=== PATIENT | female | born 1970 | race Caucasian/White ===

== ENCOUNTER → 2016-09-11 | Day surgery (SDC) | payer OTHER ==
[~2016-09-11] VITALS: Ht 149.9 cm; Wt 43.1 kg
[~2016-09-11] MED LIST: AZITHROMYCIN250 M1 PO; CLOPIDOGREL75 M2 PO; COMBIVENT INH14.7 GM IN; FENOFIBRATE MI134 MG PO; FIORINAL #3 CA1 EACH PO; GABAPENTIN100 M1 PO; HYDROCODON-ACETAMINO PO; KEFLEX 500MG.500 MG PO; MECLIZINE12.5 MG PO; METFORMIN1000 MG PO; MORPHINE SULFAT30 M3 PO; NORCO 325 MG-101 TAB PO; NORCO 325 MG-51 TAB PO; OMNICEF 300 MG300 MG PO; PRAVACHOL 20MG.20 MG PO; SIMVASTATIN40 MG PO; TIZANIDINE HCL4 MG PO; XANAX 1MG TABLET1 MG PO; ZANTAC150 MG PO
[2016-09-11 10:38] VITALS: BP 130/79
[2016-09-11 10:59] VITALS: BP 130/79
[2016-09-11 11:02] VITALS: BP 129/88
--- NOTE | 2016-09-11 11:15 | Procedure Note ---
Procedure detail Date of procedure: 09/11/16 Anesthesiologist: Sam momin CRNA Complications: None Pre-procedure diagnosis: Degenerative disc disease cervical spine. Cervical radiculopathy symptoms. Post-procedure diagnosis: Same. Indications for procedure: This patient's a pleasant 45-year-old white female that has recently been in our pain clinic for cervical neck pain that she describes as constant, dull, aching. Patient also complains of bilateral arm radiculopathy symptoms in the form of tingling in the hands. She rates her pain 7/10. Patient is status post 1 cervical epidural steroid injection which she reports today complete relief lasting 1-2 days. After which time her pain returned to baseline. Patient is status post anterior cervical discectomy and fusion. Patient would like to begin physical therapy again but is having difficulty due to this severe pain in the cervical spine area. I think is reasonable to try a second cervical epidural steroid injection and have the patient follow-up with physical therapy after this. Patient was on morphine sulfate in her PCP is now weaning her down to hydrocodone 7.5 mg 1 by mouth twice a day. Patient also complains of lumbar back pain. However, her cervical neck pain is her main complaint. Procedure detail: Procedure:Cervical epidural steroid injection Informed consent was obtained and the risks and benefits of the procedure were explained to the patient. The patient was taken to the procedure room and noninvasive monitors placed, including noninvasive blood pressure cuff and pulse oximeter. The neck was prepped using Betadine as a cleansing solution. The C6-C7 interspace was palpated. The skin and subcutaneous tissues were anesthetized using lidocaine 1.5% and a 25-gauge needle. After this an 18-gauge Touhy epidural needle was placed into the C6-C7 interspace and advanced using loss of resistance to air until the epidural space was encountered. After confirmation of needle placement in the epidural space, a solution containing lidocaine 1.5%, 4 mL and Depo-Medrol 80 mg was incrementally injected into the cervical epidural space.~ The patient tolerated the procedure well with no complications. The patient was observed in the Pain Clinic and then discharged home neurologically intact. Plan and disposition: Patient was reevaluated 10 minutes post procedure. She is doing very well. She' ll follow up with us in the pain clinic for further evaluation. at [id number]
[2016-09-11 11:17] VITALS: BP 125/85
== END ==
LOC: PM 10:21
PROC: 3E0R33Z Introduction of Anti-inflammatory into Spinal Canal, Percutaneous Approach (ICD-10-PCS; principal; 2016-09-11)
PROC: 3E0R3BZ Introduction of Anesthetic Agent into Spinal Canal, Percutaneous Approach (ICD-10-PCS; 2016-09-11)
DX: M50.10 Cervical disc disorder with radiculopathy, unspecified cervical region (principal)
CPT/HCPCS: J1040; Q9966